=== PATIENT | female | born 1950 | race Caucasian/White ===

== ENCOUNTER 2017-02-11 16:40 | Inpatient (IN) | payer MEDICARE, OTHER ==
[~2017-02-11] VITALS: Ht 160 cm; Wt 87.4 kg
[~2017-02-11 16:40] MED LIST: ADOXA100 PO; AMBIEN 10MG10 MG PO; AMITRIPTYLINE100 MG PO; ASPIRIN E.C. 8181 MG PO; BACTROBAN22 TP; CA; CIPRO 500MG TA500 MG PO; CLINDAMYCIN300 MG PO; CLONIDINE0.1 MG PO; CLOTRIM ANTIFUNGAL1% TP; COZAAR 50MG50 MG/TAB PO; DILAUDID 4MG TAB4 MG PO; DOXYCYCLINE 10100 MG PO; FLAGYL500 MG PO; FLECTOR1.3% TP; FOSAMAX70 MG PO; KLONOPIN0.5 MG PO; LAMICTAL 100MG100 MG PO; LAMICTAL 25MG T25 MG PO; LEVAQUIN 750MG750 M1 PO; LOPRESSOR50 MG PO; LOTRIMIN1% TP; MINOCYCLIN100 MG/CAP PO; MS CONTIN30 MG PO; NORCO 325 MG-7.1 TAB; NORCO 325 MG-7.1 TAB PO; OPANA ER15 MG PO; OXYBUTYNIN5 MG PO; OXYCONTIN 20MG20 MG PO; PERCOCET 325 MG1 TAB PO; PHENERGAN 25 TA25 MG PO; PREMARIN V0.625 MG/G VG; PRILOSEC 20MG20 MG PO; PROVENTIL0.09 MG/A1 IH; QVAR0.04 MG/AC IH; ROBAXIN 75750 MG/TAB PO; ROXICODONE15 MG PO; ST. JOSEPH81 M2 PO; TOPROL XL 25MG25 MG PO; VALIUM5 MG PO; VALTREX500 MG PO
[2017-02-11 17:07] VITALS: BP 163/101; PULSE 54; TEMP 98.2
[2017-02-11 17:24] LABS: BASO % 0.5 % (0.0-2.0); EOS # 0.2 (0.0-0.7); EOS % 2.3 % (0-4.0); GRAN # 3.8 (1.4-6.5); GRAN % 59.3 % (42.2-75.2); LYMPH # 1.7 (1.2-3.4); LYMPH % 26.7 % (20.0-51.0); MEAN CELL VOLUME 96 fl (80.0-100.0); MEAN CORPUSCULAR HGB CONC 33 g/dl (33.0-37.0); MEAN PLATELET VOLUME 10.4 fl (7.4-10.4); MONO # 0.7 (0.1-0.6); MONO % 10.9 % (1.7-9.3); PLATELET COUNT 277 K/mm3 (130-400); RED BLOOD COUNT 3.39 M/mm3 (4.10-5.30); REDCELL DISTRIBUTION WIDTH-CV 12.4 % (11.5-14.5); WHITE BLOOD COUNT 6.4 K/mm3 (4.8-10.8)
[2017-02-11 17:28] LABS: HEMATOCRIT 32.6 % (37.0-47.0); HEMOGLOBIN 10.9 g/dl (12.5-16.0); MEAN CORPUSCULAR HEMOGLOBIN 32 pg (27.0-31.0)
[2017-02-11 17:37] LABS: ADJUSTED CALCIUM 9.3 mg/dL (8.4-10.2); ALBUMIN 3.8 gm/dL (3.5-5.0); BILIRUBIN,TOTAL 0.7 mg/dL (0.0-1.0); C-REACTIVE PROTEIN 3.2 mg/dL (0.0-0.9); CALCIUM 9.1 mg/dL (8.4-10.2); CREATININE, serum 0.85 mg/dL (0.52-1.25); POTASSIUM 4.1 mmol/L (3.4-5.0); TOTAL PROTEIN 7.2 gm/dL (6.4-8.2)
[2017-02-11 17:45] LABS: ERYTHROCYTE SEDIMENTATION RATE 59 mm/hr (0-30)
[2017-02-11] MEDS ORDERED: FLEXERIL 1010 MG/TAB PO (18:08)
[2017-02-11] MEDS ORDERED: DOXYCYCLINE 10100 MG PO (18:08)
[2017-02-11] MEDS ORDERED: KEPPRA 500MG500 MG PO ×2 (18:08)
[2017-02-11] MEDS ORDERED: LAMICTAL200 MG PO (18:10)
[2017-02-11] MEDS ORDERED: COZAAR 50MG50 MG/TAB PO (18:10)
[2017-02-11] MEDS ORDERED: FORTAMET500 M1 PO (18:11)
[2017-02-11] MEDS ORDERED: LOPRESSOR 550 MG/TAB PO (18:11)
[2017-02-11] MEDS ORDERED: KLONOPIN 0.5MG0.5 MG PO (18:12)
[2017-02-11] MEDS ORDERED: PRAVACHOL10 MG PO (18:12)
[2017-02-11] MEDS ORDERED: BINOSTO (18:13)
[2017-02-11] MEDS ORDERED: RESTORIL 77.5 MG/CAP PO (18:13)
[2017-02-11] MEDS ORDERED: LAMICTAL 100MG100 MG PO (18:14)
[2017-02-11] MEDS ORDERED: LUNESTA2 MG PO (18:14)
[2017-02-11] MEDS ORDERED: ZANTAC 150150 MG PO (18:15)
[2017-02-11] MEDS ORDERED: IMODIUM A-D2 MG PO (18:15)
[2017-02-11] MEDS ORDERED: MYRBETR50MG PO (18:16)
[2017-02-11] MEDS ORDERED: AMBIEN 10MG10 MG (18:17)
[2017-02-11] MEDS ORDERED: TAGAMET800 MG (18:17)
[2017-02-11] MEDS ORDERED: SILENOR3 MG PO (18:17)
[2017-02-11] MEDS ORDERED: PRILOTC PO (18:18)
[2017-02-11] MEDS ORDERED: OPANA ER10 MG PO (18:18)
[2017-02-11] MEDS ORDERED: NORCO 325 MG-101 TAB PO (18:19)
[2017-02-11 20:29] VITALS: BP 170/81; PULSE 88; TEMP 98
[2017-02-11 23:37] VITALS: BP 136/56; PULSE 89; TEMP 101
[2017-02-12 03:25] VITALS: BP 144/98; PULSE 80; TEMP 98.2
[2017-02-12 03:32] VITALS: BP 164/84; PULSE 89; TEMP 98.2
[2017-02-12 08:00] LABS: BASO % 0.5 % (0.0-2.0); EOS # 0.2 (0.0-0.7); EOS % 3.1 % (0-4.0); GRAN # 3.3 (1.4-6.5); GRAN % 54.5 % (42.2-75.2); LYMPH # 1.9 (1.2-3.4); LYMPH % 31.3 % (20.0-51.0); MEAN CELL VOLUME 97 fl (80.0-100.0); MEAN CORPUSCULAR HGB CONC 33 g/dl (33.0-37.0); MEAN PLATELET VOLUME 10.6 fl (7.4-10.4); MONO # 0.6 (0.1-0.6); MONO % 10.1 % (1.7-9.3); PLATELET COUNT 263 K/mm3 (130-400); RED BLOOD COUNT 3.16 M/mm3 (4.10-5.30); REDCELL DISTRIBUTION WIDTH-CV 12.4 % (11.5-14.5)
[2017-02-12 08:03] LABS: HEMATOCRIT 30.7 % (37.0-47.0); HEMOGLOBIN 10.2 g/dl (12.5-16.0); MEAN CORPUSCULAR HEMOGLOBIN 32 pg (27.0-31.0)
[2017-02-12 08:20] LABS: C-REACTIVE PROTEIN 3.6 mg/dL (0.0-0.9); CALCIUM 8.7 mg/dL (8.4-10.2); CREATININE, serum 0.83 mg/dL (0.52-1.25); POTASSIUM 3.9 mmol/L (3.4-5.0)
[2017-02-12 08:29] VITALS: BP 165/71; PULSE 88; TEMP 98.4
[2017-02-12 09:08] LABS: ERYTHROCYTE SEDIMENTATION RATE 71 mm/hr (0-30)
[2017-02-12 13:03] VITALS: BP 172/74; PULSE 87; TEMP 97.9
[2017-02-12 15:26] VITALS: BP 154/85; PULSE 97; TEMP 98.8
[2017-02-12 20:13] VITALS: BP 183/79; PULSE 92; TEMP 98.5
[2017-02-13] VITALS (7 sets, daily range): BP systolic 143–185; BP diastolic 69–99; PULSE 71–88; TEMP 97.7–98.6
[2017-02-13 07:18] LABS: BASO % 0.6 % (0.0-2.0); EOS # 0.1 (0.0-0.7); GRAN # 3.7 (1.4-6.5); GRAN % 56.6 % (42.2-75.2); LYMPH # 2.1 (1.2-3.4); LYMPH % 32.8 % (20.0-51.0); MEAN CELL VOLUME 97 fl (80.0-100.0); MEAN CORPUSCULAR HGB CONC 33 g/dl (33.0-37.0); MEAN PLATELET VOLUME 10.3 fl (7.4-10.4); MONO # 0.5 (0.1-0.6); MONO % 7.4 % (1.7-9.3); PLATELET COUNT 313 K/mm3 (130-400); RED BLOOD COUNT 3.35 M/mm3 (4.10-5.30); REDCELL DISTRIBUTION WIDTH-CV 12.4 % (11.5-14.5); WHITE BLOOD COUNT 6.5 K/mm3 (4.8-10.8)
[2017-02-13 07:19] LABS: HEMATOCRIT 32.5 % (37.0-47.0); HEMOGLOBIN 10.8 g/dl (12.5-16.0); MEAN CORPUSCULAR HEMOGLOBIN 32 pg (27.0-31.0)
[2017-02-14] VITALS (7 sets, daily range): BP systolic 158–188; BP diastolic 57–79; PULSE 64–81; TEMP 97.6–98.4
[2017-02-14 08:56] LABS: BASO % 0.7 % (0.0-2.0); EOS # 0.1 (0.0-0.7); GRAN # 2.4 (1.4-6.5); GRAN % 53.8 % (42.2-75.2); LYMPH # 1.7 (1.2-3.4); LYMPH % 36.6 % (20.0-51.0); MEAN CELL VOLUME 98 fl (80.0-100.0); MEAN CORPUSCULAR HGB CONC 33 g/dl (33.0-37.0); MEAN PLATELET VOLUME 9.9 fl (7.4-10.4); MONO # 0.3 (0.1-0.6); PLATELET COUNT 298 K/mm3 (130-400); RED BLOOD COUNT 3.43 M/mm3 (4.10-5.30); REDCELL DISTRIBUTION WIDTH-CV 12.2 % (11.5-14.5); WHITE BLOOD COUNT 4.5 K/mm3 (4.8-10.8)
[2017-02-14 08:59] LABS: HEMATOCRIT 33.5 % (37.0-47.0); HEMOGLOBIN 10.9 g/dl (12.5-16.0); MEAN CORPUSCULAR HEMOGLOBIN 32 pg (27.0-31.0)
[2017-02-14 09:07] LABS: CALCIUM 8.8 mg/dL (8.4-10.2); CREATININE, serum 0.79 mg/dL (0.52-1.25)
[2017-02-14 09:39] LABS: POTASSIUM 3.6 mmol/L (3.4-5.0)
[2017-02-15 03:00] VITALS: BP 170/85; PULSE 74; TEMP 98.5
[2017-02-15 07:02] VITALS: BP 189/85; PULSE 77; TEMP 98.3
[2017-02-15] MEDS ORDERED: LOPRESSOR100 MG PO (11:02)
[2017-02-15] MEDS ORDERED: HYZAAR 12.5 MG-1 TAB PO (11:02)
[2017-02-15 11:04] VITALS: BP 145/57; PULSE 72; TEMP 98.3
[2017-02-15] MEDS ORDERED: DOXYCYCLINE HY100 MG PO (11:35)
[2017-02-15] MEDS ORDERED: APRESOLINE50 MG PO (11:35)
== END 2017-02-15 12:35 | disposition home health service (06) | DRG 638 ==
LOC: MEDICAL 16:40
PROVIDERS: Family Medicine
PROC: 0HDNXZZ Extraction of Left Foot Skin, External Approach (ICD-10-PCS; principal; 2017-02-12)
PROC: 0HDNXZZ Extraction of Left Foot Skin, External Approach (ICD-10-PCS; 2017-02-13)
DX: E11.628 Type 2 diabetes mellitus with other skin complications (principal); L03.116 Cellulitis of left lower limb; L97.429 Non-pressure chronic ulcer of left heel and midfoot with unspecified severity; L03.032 Cellulitis of left toe; E11.621 Type 2 diabetes mellitus with foot ulcer; I10 Essential (primary) hypertension; H54.0 Blindness, both eyes; Z89.422 Acquired absence of other left toe(s); G89.29 Other chronic pain
CPT/HCPCS: 99222-AI; 99232-AI; 99239; J0360; J1650; J2270; J3370; J7030; J7050

== ENCOUNTER → 2017-03-23 | Outpatient (CLI) | payer MEDICARE, OTHER ==
[~2017-03-23] MED LIST changes: +AMBIEN 10MG10 MG; +APRESOLINE50 MG PO; +BINOSTO; +DOXYCYCLINE HY100 MG PO; +FLEXERIL 1010 MG/TAB PO; +FORTAMET500 M1 PO; +HYZAAR 12.5 MG-1 TAB PO; +IMODIUM A-D2 MG PO; +KEPPRA 500MG500 MG PO; +KLONOPIN 0.5MG0.5 MG PO; +LAMICTAL200 MG PO; +LOPRESSOR 550 MG/TAB PO; +LOPRESSOR100 MG PO; +LUNESTA2 MG PO; +MYRBETR50MG PO; +NORCO 325 MG-101 TAB PO; +OPANA ER10 MG PO; +PRAVACHOL10 MG PO; +PRILOTC PO; +RESTORIL 77.5 MG/CAP PO; +SILENOR3 MG PO; +TAGAMET800 MG; +ZANTAC 150150 MG PO
== END ==
LOC: WCC 09:55
DX: E11.621 Type 2 diabetes mellitus with foot ulcer (principal)
CPT/HCPCS: 13919; 16847; 17717; 27516; A6207; A6212; G0463

== ENCOUNTER → 2017-04-01 | Outpatient (CLI) | payer MEDICARE, OTHER | LOC: WCC 03-30 11:16 | DX: E11.621 Type 2 diabetes mellitus with foot ulcer (principal); L97.529 Non-pressure chronic ulcer of other part of left foot with unspecified severity; H54.0 Blindness, both eyes | CPT/HCPCS: 13919; 17040; 17717; 27516; A6207; A6212; Q4106 ==

== ENCOUNTER → 2017-04-08 | Outpatient (CLI) | payer MEDICARE, OTHER | LOC: WCC 08:44 | DX: E11.621 Type 2 diabetes mellitus with foot ulcer (principal); L97.529 Non-pressure chronic ulcer of other part of left foot with unspecified severity | CPT/HCPCS: 13919; 17040; 17717; 27516; A6207; A6212; Q4106 ==

== ENCOUNTER → 2017-04-14 | Outpatient (CLI) | payer MEDICARE, OTHER | LOC: WCC 09:42 | DX: E11.621 Type 2 diabetes mellitus with foot ulcer (principal); L97.509 Non-pressure chronic ulcer of other part of unspecified foot with unspecified severity | CPT/HCPCS: 13919; G0463 ==

== ENCOUNTER → 2017-04-15 | Outpatient (CLI) | payer MEDICARE, OTHER | LOC: WCC 08:51 | DX: E11.621 Type 2 diabetes mellitus with foot ulcer (principal); L97.529 Non-pressure chronic ulcer of other part of left foot with unspecified severity | CPT/HCPCS: 13919; 17040; 17717; 27510; 27516; A6197; A6207; A6212; Q4106 ==

== ENCOUNTER → 2017-04-22 | Outpatient (CLI) | payer MEDICARE, OTHER | LOC: WCC 08:47 | DX: E11.621 Type 2 diabetes mellitus with foot ulcer (principal); L97.529 Non-pressure chronic ulcer of other part of left foot with unspecified severity; E66.01 Morbid (severe) obesity due to excess calories | CPT/HCPCS: 13919; 13973; 16847; 17717; A6199; A6212 ==

== ENCOUNTER → 2017-04-29 | Outpatient (CLI) | payer MEDICARE, OTHER | LOC: WCC 09:19 | DX: Z01.89 Encounter for other specified special examinations (principal) ==

== ENCOUNTER → 2017-05-06 | Outpatient (CLI) | payer MEDICARE, OTHER | LOC: WCC 09:43 | DX: Z01.89 Encounter for other specified special examinations (principal) ==

== ENCOUNTER → 2017-05-13 | Outpatient (CLI) | payer MEDICARE, OTHER | LOC: WCC 05-12 09:29 | DX: E11.621 Type 2 diabetes mellitus with foot ulcer (principal); L97.529 Non-pressure chronic ulcer of other part of left foot with unspecified severity | CPT/HCPCS: 13919; 13973; 18867; 27510; A6197; A6199; A6209; G0463 ==

== ENCOUNTER → 2017-05-20 | Outpatient (CLI) | payer MEDICARE, OTHER | LOC: WCC 09:00 | DX: L97.529 Non-pressure chronic ulcer of other part of left foot with unspecified severity (principal) | CPT/HCPCS: 17716; A6212; G0463 ==

== ENCOUNTER → 2017-07-07 | Outpatient (CLI) | payer MEDICARE, OTHER | LOC: WCC 09:21 | DX: E11.621 Type 2 diabetes mellitus with foot ulcer (principal); L97.519 Non-pressure chronic ulcer of other part of right foot with unspecified severity; L97.529 Non-pressure chronic ulcer of other part of left foot with unspecified severity; E66.01 Morbid (severe) obesity due to excess calories | CPT/HCPCS: 13919; 13973; A6199; G0463 ==

== ENCOUNTER → 2017-07-14 | Outpatient (CLI) | payer MEDICARE, OTHER | LOC: WCC 10:14 | DX: E11.621 Type 2 diabetes mellitus with foot ulcer (principal); L97.519 Non-pressure chronic ulcer of other part of right foot with unspecified severity; L97.529 Non-pressure chronic ulcer of other part of left foot with unspecified severity | CPT/HCPCS: 13919; 27517; A6207 ==

== ENCOUNTER 2017-10-23 16:58 | Inpatient (IN) | payer MEDICARE, OTHER ==
[~2017-10-23] VITALS: Ht 160 cm; Wt 80.7 kg
[2017-10-23] VITALS (307 sets, daily range): BP systolic 81–146; BP diastolic 56–80; PULSE 89–94; TEMP 96.7–97.3; O2SAT 81–100
[~2017-10-23 16:58] MED LIST changes: +FOSAMAX 70MG TA70 MG PO; +GLUMETZA500 MG PO; +LOVENOX 100100 MG/ML SQ; +MS CONTIN 115 MG/TAB PO; +OXY IR5 MG PO; +PERCOCET 325 MG1 TA2 PO; +SEPTRA DS 8001 TAB PO
[2017-10-23 17:30] LABS: BASO % 0.2 % (0.0-2.0); EOS % 0.1 % (0-4.0); GRAN # 10.3 (1.4-6.5); GRAN % 83.9 % (42.2-75.2); LYMPH # 1.3 (1.2-3.4); LYMPH % 10.6 % (20.0-51.0); MEAN CELL VOLUME 106 fl (80.0-100.0); MEAN CORPUSCULAR HGB CONC 30 g/dl (33.0-37.0); MEAN PLATELET VOLUME 10.3 fl (7.4-10.4); MONO # 0.5 (0.1-0.6); PLATELET COUNT 375 K/mm3 (130-400); REDCELL DISTRIBUTION WIDTH-CV 17.8 % (11.5-14.5)
[2017-10-23 17:31] LABS: HEMOGLOBIN 3.5 g/dl (12.5-16.0); MEAN CORPUSCULAR HEMOGLOBIN 32 pg (27.0-31.0)
[2017-10-23 17:32] LABS: HEMATOCRIT 11.6 % (37.0-47.0)
[2017-10-23 17:33] LABS: INR 1.2 (0.8-3.0); PROTHROMBIN TIME 14.4 SECONDS (9.7-12.8)
[2017-10-23 17:33] LABS: ARTERIAL BLD GAS O2 SATURATION 98.5 % (92-100); ARTERIAL BLD GAS TCO2 CT 20.7; ARTERIAL BLOOD GAS BASE EXCESS -4.6 (-2-2); ARTERIAL BLOOD GAS HCO3 19.8 meq/L (22-26); ARTERIAL BLOOD GAS PCO2 31.6 mmHg (35-45); ARTERIAL BLOOD GAS pH 7.41 (7.35-7.45)
[2017-10-23 17:34] LABS: ARTERIAL BLOOD GAS PO2 156.1 mmHg (80-100)
[2017-10-23 17:35] LABS: PARTIAL THROMBOPLASTIN TIME 28.4 SECONDS (26.0-37.0)
[2017-10-23 17:38] LABS: ALANINE AMINOTRANSFERASE 26 U/L (9-52); ALBUMIN 2.9 gm/dL (3.5-5.0); ALKALINE PHOSPHATASE 41 U/L (50-136); ANION GAP 10 mmol/L (7-16); AST,SGOT 19 U/L (15-37); BILIRUBIN,TOTAL 0.4 mg/dL (0.0-1.0); BLOOD UREA NITROGEN 41 mg/dL (7-17); CALCIUM 8.3 mg/dL (8.4-10.2); CARBON DIOXIDE 21 mmol/L (22-30); CHLORIDE 103 mmol/L (98-107); CREATINE KINASE 90 U/L (30-135); CREATININE, serum 1.42 mg/dL (0.52-1.25); GLUCOSE 179 mg/dL (74-106); POTASSIUM 4.4 mmol/L (3.4-5.0); SODIUM 134 mmol/L (137-145); TOTAL PROTEIN 5.6 gm/dL (6.4-8.2)
[2017-10-23 17:51] LABS: TROPONIN-I < 0.012 ng/mL (0.000-0.034)
[2017-10-23 18:17] LABS: COLLECTION METHOD CATHETER
[2017-10-23 18:32] LABS: MUCOUS Present /lpf; PH 6 (5-8); SQUAMOUS EPITHELIAL None Seen /hpf; URINE APPEARANCE Hazy; URINE BACTERIA Rare /hpf; URINE BILIRUBIN Negative (NEGATIVE); URINE BLOOD Negative (NEGATIVE); URINE COLOR Yellow; URINE GLUCOSE Negative (NEGATIVE); URINE KETONE Negative (NEGATIVE); URINE LEUKOCYTE ESTERASE 1+ (NEGATIVE); URINE NITRATE Negative (NEGATIVE); URINE PROTEIN(semi-quant) Negative (NEGATIVE); URINE RBC 0-2 /hpf; URINE UROBILINOGEN Negative (NEGATIVE); URINE WBC 20-50 /hpf
[2017-10-23 18:40] LABS: TRICYCLIC ANTIDEPRESS URINE NEGATIVE
[2017-10-24] VITALS (1368 sets, daily range): BP systolic 117–180; BP diastolic 56–91; PULSE 97–110; TEMP 97.2–99.2; O2SAT 88–100
[2017-10-24 01:10] LABS: HEMATOCRIT 20.9 % (37.0-47.0)
[2017-10-24 01:14] LABS: HEMOGLOBIN 6.9 g/dl (12.5-16.0)
[2017-10-24] MEDS ORDERED: CLEOCIN HCL300 MG PO (03:39)
[2017-10-24 08:38] LABS: BASO # 0.1 (0.0-0.2); BASO % 0.5 % (0.0-2.0); EOS % 0.1 % (0-4.0); GRAN # 9.2 (1.4-6.5); GRAN % 78.6 % (42.2-75.2); LYMPH # 1.6 (1.2-3.4); LYMPH % 13.4 % (20.0-51.0); MEAN CORPUSCULAR HGB CONC 33 g/dl (33.0-37.0); MEAN PLATELET VOLUME 10.1 fl (7.4-10.4); MONO # 0.8 (0.1-0.6); MONO % 6.4 % (1.7-9.3); PLATELET COUNT 332 K/mm3 (130-400); RED BLOOD COUNT 3.02 M/mm3 (4.10-5.30); REDCELL DISTRIBUTION WIDTH-CV 16.1 % (11.5-14.5)
[2017-10-24 08:43] LABS: CALCIUM 8.7 mg/dL (8.4-10.2); CREATININE, serum 0.89 mg/dL (0.52-1.25); HEMATOCRIT 28.2 % (37.0-47.0); HEMOGLOBIN 9.4 g/dl (12.5-16.0); MEAN CELL VOLUME 93 fl (80.0-100.0); MEAN CORPUSCULAR HEMOGLOBIN 31 pg (27.0-31.0); POTASSIUM 4.3 mmol/L (3.4-5.0)
[2017-10-24 20:12] LABS: HEMATOCRIT 27.3 % (37.0-47.0); HEMOGLOBIN 9.2 g/dl (12.5-16.0)
[2017-10-25] VITALS (680 sets, daily range): BP systolic 122–151; BP diastolic 64–72; PULSE 86–99; TEMP 98.2–98.9; O2SAT 87–100
[2017-10-25 05:50] LABS: BASO # 0.1 (0.0-0.2); BASO % 0.6 % (0.0-2.0); EOS # 0.1 (0.0-0.7); EOS % 1.4 % (0-4.0); GRAN # 4.8 (1.4-6.5); GRAN % 61.6 % (42.2-75.2); HEMATOCRIT 26.3 % (37.0-47.0); HEMOGLOBIN 8.7 g/dl (12.5-16.0); LYMPH # 2.2 (1.2-3.4); LYMPH % 27.7 % (20.0-51.0); MEAN CELL VOLUME 96 fl (80.0-100.0); MEAN CORPUSCULAR HEMOGLOBIN 32 pg (27.0-31.0); MEAN CORPUSCULAR HGB CONC 33 g/dl (33.0-37.0); MEAN PLATELET VOLUME 9.7 fl (7.4-10.4); MONO # 0.6 (0.1-0.6); MONO % 8.1 % (1.7-9.3); PLATELET COUNT 309 K/mm3 (130-400); RED BLOOD COUNT 2.75 M/mm3 (4.10-5.30); REDCELL DISTRIBUTION WIDTH-CV 17.2 % (11.5-14.5)
[2017-10-25 06:02] LABS: CALCIUM 8.3 mg/dL (8.4-10.2); CREATININE, serum 0.75 mg/dL (0.52-1.25); POTASSIUM 3.4 mmol/L (3.4-5.0)
[2017-10-25 18:24] LABS: HEMATOCRIT 26.1 % (37.0-47.0); HEMOGLOBIN 8.7 g/dl (12.5-16.0)
[2017-10-26 00:37] VITALS: BP 138/77; PULSE 93; TEMP 97.9
[2017-10-26 04:22] VITALS: BP 131/59; PULSE 88; TEMP 98.1
[2017-10-26 06:37] LABS: CALCIUM 8.2 mg/dL (8.4-10.2); CREATININE, serum 0.71 mg/dL (0.52-1.25); MAGNESIUM 1.8 mg/dL (1.6-2.3)
[2017-10-26 06:39] LABS: MEAN CELL VOLUME 96 fl (80.0-100.0); MEAN CORPUSCULAR HGB CONC 33 g/dl (33.0-37.0); MEAN PLATELET VOLUME 10.1 fl (7.4-10.4); PLATELET COUNT 314 K/mm3 (130-400); RED BLOOD COUNT 2.65 M/mm3 (4.10-5.30); REDCELL DISTRIBUTION WIDTH-CV 17.2 % (11.5-14.5)
[2017-10-26 06:40] LABS: HEMATOCRIT 25.5 % (37.0-47.0); HEMOGLOBIN 8.4 g/dl (12.5-16.0); MEAN CORPUSCULAR HEMOGLOBIN 32 pg (27.0-31.0)
[2017-10-26 06:57] LABS: POTASSIUM 2.9 mmol/L (3.4-5.0)
[2017-10-26 07:36] LABS: BAND 21 % (0-10); EOSINOPHIL 3 % (0-4); LYMPHOCYTE 26 % (20.0-51.0); NEUTROPHILS 48 % (42.0-75.2); PLATELET ESTIMATE NORMAL (NORMAL)
[2017-10-26 07:43] LABS: ANISOCYTOSIS 1+; HYPOCHROMIA 1+
[2017-10-26 16:01] VITALS: BP 148/60; PULSE 86; TEMP 98.3
[2017-10-26 20:24] VITALS: BP 143/86; PULSE 82; TEMP 98.1
[2017-10-27] VITALS (7 sets, daily range): BP systolic 136–159; BP diastolic 55–81; PULSE 80–171; TEMP 97.7–98.5
[2017-10-27 06:39] LABS: BASO % 0.6 % (0.0-2.0); EOS # 0.3 (0.0-0.7); EOS % 6.4 % (0-4.0); GRAN # 2.3 (1.4-6.5); GRAN % 49.3 % (42.2-75.2); LYMPH # 1.6 (1.2-3.4); LYMPH % 34.6 % (20.0-51.0); MEAN CELL VOLUME 98 fl (80.0-100.0); MEAN CORPUSCULAR HGB CONC 32 g/dl (33.0-37.0); MEAN PLATELET VOLUME 9.9 fl (7.4-10.4); MONO # 0.4 (0.1-0.6); MONO % 8.5 % (1.7-9.3); PLATELET COUNT 304 K/mm3 (130-400); RED BLOOD COUNT 2.68 M/mm3 (4.10-5.30); REDCELL DISTRIBUTION WIDTH-CV 17.1 % (11.5-14.5)
[2017-10-27 06:54] LABS: CALCIUM 8.2 mg/dL (8.4-10.2); CREATININE, serum 0.7 mg/dL (0.52-1.25); POTASSIUM 3.6 mmol/L (3.4-5.0)
[2017-10-27 07:02] LABS: HEMATOCRIT 26.3 % (37.0-47.0); HEMOGLOBIN 8.4 g/dl (12.5-16.0); MEAN CORPUSCULAR HEMOGLOBIN 31 pg (27.0-31.0)
[2017-10-28 04:54] VITALS: BP 134/97; PULSE 84; TEMP 97.9
[2017-10-28 07:30] LABS: BASO % 0.5 % (0.0-2.0); EOS # 0.3 (0.0-0.7); EOS % 4.9 % (0-4.0); GRAN # 3.7 (1.4-6.5); GRAN % 66.8 % (42.2-75.2); LYMPH # 1.2 (1.2-3.4); LYMPH % 21.3 % (20.0-51.0); MEAN CELL VOLUME 99 fl (80.0-100.0); MEAN CORPUSCULAR HGB CONC 32 g/dl (33.0-37.0); MEAN PLATELET VOLUME 10.1 fl (7.4-10.4); MONO # 0.3 (0.1-0.6); MONO % 6.1 % (1.7-9.3); PLATELET COUNT 300 K/mm3 (130-400); RED BLOOD COUNT 2.69 M/mm3 (4.10-5.30); REDCELL DISTRIBUTION WIDTH-CV 17.2 % (11.5-14.5)
[2017-10-28 07:32] LABS: HEMATOCRIT 26.6 % (37.0-47.0); HEMOGLOBIN 8.5 g/dl (12.5-16.0); MEAN CORPUSCULAR HEMOGLOBIN 32 pg (27.0-31.0)
[2017-10-28 07:38] LABS: CALCIUM 8.6 mg/dL (8.4-10.2); CREATININE, serum 0.74 mg/dL (0.52-1.25); POTASSIUM 3.3 mmol/L (3.4-5.0)
[2017-10-28 08:05] VITALS: BP 168/81; PULSE 75; TEMP 97.9
[2017-10-28 11:32] VITALS: BP 182/82; PULSE 93; TEMP 98
[2017-10-28 15:40] VITALS: BP 113/94; PULSE 86; TEMP 98
[2017-10-28 19:28] VITALS: BP 145/82; PULSE 105; TEMP 98
[2017-10-29] VITALS (7 sets, daily range): BP systolic 134–174; BP diastolic 65–89; PULSE 91–99; TEMP 98–99.2
[2017-10-29 07:28] LABS: BASO % 0.6 % (0.0-2.0); EOS # 0.3 (0.0-0.7); EOS % 5.3 % (0-4.0); GRAN # 2.2 (1.4-6.5); GRAN % 43.7 % (42.2-75.2); LYMPH # 2.2 (1.2-3.4); LYMPH % 43.1 % (20.0-51.0); MEAN CELL VOLUME 99 fl (80.0-100.0); MEAN CORPUSCULAR HGB CONC 32 g/dl (33.0-37.0); MEAN PLATELET VOLUME 10.2 fl (7.4-10.4); MONO # 0.4 (0.1-0.6); MONO % 7.1 % (1.7-9.3); PLATELET COUNT 335 K/mm3 (130-400); REDCELL DISTRIBUTION WIDTH-CV 17.5 % (11.5-14.5)
[2017-10-29 07:29] LABS: HEMATOCRIT 28.8 % (37.0-47.0); HEMOGLOBIN 9.1 g/dl (12.5-16.0); MEAN CORPUSCULAR HEMOGLOBIN 31 pg (27.0-31.0)
[2017-10-29 07:51] LABS: CALCIUM 9.3 mg/dL (8.4-10.2); CREATININE, serum 0.77 mg/dL (0.52-1.25); MAGNESIUM 1.9 mg/dL (1.6-2.3); POTASSIUM 3.6 mmol/L (3.4-5.0)
[2017-10-30 04:20] VITALS: BP 141/83; PULSE 74; TEMP 98.1
[2017-10-30 07:03] LABS: MEAN CELL VOLUME 100 fl (80.0-100.0); MEAN CORPUSCULAR HGB CONC 32 g/dl (33.0-37.0); MEAN PLATELET VOLUME 9.9 fl (7.4-10.4); PLATELET COUNT 348 K/mm3 (130-400); RED BLOOD COUNT 3.05 M/mm3 (4.10-5.30); REDCELL DISTRIBUTION WIDTH-CV 17.3 % (11.5-14.5)
[2017-10-30 07:13] LABS: HEMATOCRIT 30.4 % (37.0-47.0); HEMOGLOBIN 9.7 g/dl (12.5-16.0); MEAN CORPUSCULAR HEMOGLOBIN 32 pg (27.0-31.0)
[2017-10-30 07:29] LABS: CALCIUM 9.1 mg/dL (8.4-10.2); CREATININE, serum 0.91 mg/dL (0.52-1.25); MAGNESIUM 2.1 mg/dL (1.6-2.3); PHOSPHOROUS 4.5 mg/dL (2.5-4.5); POTASSIUM 4.1 mmol/L (3.4-5.0)
[2017-10-30 07:44] LABS: ANISOCYTOSIS 1+; BAND 12 % (0-10); BASOPHIL 1 % (0-2); EOSINOPHIL 6 % (0-4); LYMPHOCYTE 34 % (20.0-51.0); NEUTROPHILS 43 % (42.0-75.2); PLATELET ESTIMATE NORMAL (NORMAL); POLYCHROMASIA 1+
[2017-10-30 07:45] LABS: TOXIC GRANULATION PRESENT
[2017-10-30 08:30] VITALS: BP 142/71; BP 155/61; PULSE 75; PULSE 86; TEMP 98; TEMP 98.1
[2017-10-30 12:45] VITALS: BP 153/72; PULSE 76; TEMP 97.7
[2017-10-30 16:36] VITALS: BP 115/53; PULSE 89; TEMP 98
[2017-10-30 18:03] LABS: FOLATE (FOLIC ACID) 11.7 ng/mL (7.0-31.4)
[2017-10-30 19:44] VITALS: BP 141/91; PULSE 97; TEMP 98.3
[2017-10-30 23:56] VITALS: BP 142/38; PULSE 71; TEMP 97.9
[2017-10-31] VITALS (13 sets, daily range): BP systolic 103–136; BP diastolic 46–81; PULSE 62–86; TEMP 97.3–98.2
[2017-10-31 07:24] LABS: BASO # 0.1 (0.0-0.2); EOS # 0.3 (0.0-0.7); EOS % 4.5 % (0-4.0); GRAN # 3.5 (1.4-6.5); GRAN % 51.6 % (42.2-75.2); LYMPH # 2.4 (1.2-3.4); LYMPH % 35.3 % (20.0-51.0); MEAN CELL VOLUME 101 fl (80.0-100.0); MEAN CORPUSCULAR HGB CONC 31 g/dl (33.0-37.0); MEAN PLATELET VOLUME 10.1 fl (7.4-10.4); MONO # 0.5 (0.1-0.6); MONO % 7.2 % (1.7-9.3); PLATELET COUNT 366 K/mm3 (130-400); RED BLOOD COUNT 3.09 M/mm3 (4.10-5.30); REDCELL DISTRIBUTION WIDTH-CV 16.8 % (11.5-14.5)
[2017-10-31 07:29] LABS: HEMATOCRIT 31.2 % (37.0-47.0); HEMOGLOBIN 9.8 g/dl (12.5-16.0); MEAN CORPUSCULAR HEMOGLOBIN 32 pg (27.0-31.0)
[2017-10-31 07:43] LABS: CALCIUM 9.1 mg/dL (8.4-10.2); CREATININE, serum 0.85 mg/dL (0.52-1.25); PHOSPHOROUS 4.4 mg/dL (2.5-4.5); POTASSIUM 3.7 mmol/L (3.4-5.0)
[2017-11-01 04:02] VITALS: BP 113/69; PULSE 76; TEMP 98.2
[2017-11-01 06:40] LABS: BASO % 0.4 % (0.0-2.0); EOS # 0.1 (0.0-0.7); EOS % 1.2 % (0-4.0); GRAN # 3.4 (1.4-6.5); GRAN % 49.6 % (42.2-75.2); LYMPH # 2.7 (1.2-3.4); MEAN CELL VOLUME 102 fl (80.0-100.0); MEAN CORPUSCULAR HGB CONC 31 g/dl (33.0-37.0); MEAN PLATELET VOLUME 10.1 fl (7.4-10.4); MONO # 0.6 (0.1-0.6); MONO % 8.5 % (1.7-9.3); PLATELET COUNT 361 K/mm3 (130-400)
[2017-11-01 06:45] LABS: HEMATOCRIT 29.6 % (37.0-47.0); HEMOGLOBIN 9.1 g/dl (12.5-16.0); MEAN CORPUSCULAR HEMOGLOBIN 31 pg (27.0-31.0)
[2017-11-01 06:55] LABS: CALCIUM 8.8 mg/dL (8.4-10.2); CREATININE, serum 1.07 mg/dL (0.52-1.25); POTASSIUM 3.9 mmol/L (3.4-5.0)
[2017-11-01 08:27] VITALS: BP 117/51; PULSE 76; TEMP 98.6
[2017-11-01] MEDS ORDERED: LOPRESSOR 550 MG/TAB PO (09:41)
[2017-11-01] MEDS ORDERED: FERROUS SU325 MG/TAB PO (09:41)
[2017-11-01] MEDS ORDERED: PROTONIX 40MG T40 MG PO (09:43)
[2017-11-01 11:35] VITALS: BP 117/51; PULSE 76; TEMP 98.6
== END 2017-11-01 15:45 | DRG 356 ==
LOC: COL.ER 16:58 → ICU 18:11 → MEDICAL 18:11
PROVIDERS: Emergency Medicine; Family Medicine; Internal Medicine; Nurse Practitioner; Orthopaedic Surgery; Physician Assistant
PROC: 0W3P8ZZ Control Bleeding in Gastrointestinal Tract, Via Natural or Artificial Opening Endoscopic (ICD-10-PCS; 2017-10-24)
PROC: 0DB68ZX Excision of Stomach, Via Natural or Artificial Opening Endoscopic, Diagnostic (ICD-10-PCS; 2017-10-24)
PROC: 0QBN0ZZ Excision of Right Metatarsal, Open Approach (ICD-10-PCS; principal; 2017-10-26 07:30)
PROC: 0JBQ0ZZ Excision of Right Foot Subcutaneous Tissue and Fascia, Open Approach (ICD-10-PCS; 2017-10-31)
DX: K26.4 Chronic or unspecified duodenal ulcer with hemorrhage (principal); R57.8 Other shock; R57.1 Hypovolemic shock; N39.0 Urinary tract infection, site not specified; D62 Acute posthemorrhagic anemia; E87.2 Acidosis; E11.621 Type 2 diabetes mellitus with foot ulcer; I10 Essential (primary) hypertension; H54.8 Legal blindness, as defined in USA; E87.6 Hypokalemia; T87.81 Dehiscence of amputation stump; Z89.411 Acquired absence of right great toe
CPT/HCPCS: 99223-AI; 99231-AI; 99232-AI; 99233-AI; 99239; C9113; J0360; J0610; J0696; J1100; J1170; J1200; J1644; J1815; J2060; J2270; J2405; J2704; J3010; J7030; P9016

== ENCOUNTER → 2017-12-29 | Outpatient (CLI) | payer MEDICARE, OTHER ==
[~2017-12-29] MED LIST changes: +CLEOCIN HCL300 MG PO; +FERROUS SU325 MG/TAB PO; +PROTONIX 40MG T40 MG PO
== END ==
LOC: COL.RAD 08:30
DX: R10.9 Unspecified abdominal pain (principal); Z90.49 Acquired absence of other specified parts of digestive tract; Z90.710 Acquired absence of both cervix and uterus; Z98.890 Other specified postprocedural states

== ENCOUNTER 2020-03-04 15:20 | Inpatient (IN) | payer MEDICARE, OTHER ==
[~2020-03-04] VITALS: Ht 160 cm; Wt 89.3 kg
--- NOTE | 2020-03-04 20:09 | NUR ---
Assessment complete. Lungs clear. Heart sounds normal. Bowels active x4. Pulses present. Bilateral lower extremity edema +1. INT left foot without complications. Reports 9/10 pain in back and right ankle. Valerie DELACRUZN notifed of consult. Patient denies needs and further questions at this time. Orientated to medical floor. Call light in reach.
[2020-03-04] MEDS ORDERED: APRESOLINE50 MG PO (20:41)
[2020-03-04] MEDS ORDERED: NEURONTIN300 MG/CAP PO (20:42)
[2020-03-04] MEDS ORDERED: MS CONTIN 115 MG/TAB PO (20:42)
[2020-03-04] MEDS ORDERED: LOPRESSOR100 MG PO (20:42)
[2020-03-04] MEDS ORDERED: MORPHINE 1515 MG/TAB PO (20:43)
[2020-03-04] MEDS ORDERED: FERROUSAL325 MG PO (20:44)
[2020-03-04] MEDS ORDERED: PROTONIX 40MG T40 MG PO (20:45)
[2020-03-04] MEDS ORDERED: ZANAFLEX CAPSULE4 MG PO (20:46)
[2020-03-04] MEDS ORDERED: MONODOX50 M1 PO (20:47)
[2020-03-04] MEDS ORDERED: POLYMYXIN B/TRIMETH OS (20:48)
[2020-03-04] MEDS ORDERED: DESYREL 50MG50 MG PO (20:50)
[2020-03-04] MEDS ORDERED: ZOLOFT 50MG50 MG PO (20:53)
[2020-03-04] MEDS ORDERED: KEPPRA 500MG500 MG PO (20:56)
[2020-03-04 21:12] VITALS: BP 160/118; PULSE 82; TEMP 97.9
[2020-03-04 22:22] VITALS: BP 174/80
[2020-03-04 22:34] LABS: BASO # 0.1 (0.0-0.2); BASO % 0.6 % (0.0-2.0); EOS # 0.2 (0.0-0.7); EOS % 2.1 % (0-4.0); GRAN # 5.8 (1.4-6.5); GRAN % 69.2 % (42.2-75.2); LYMPH # 1.7 (1.2-3.4); MEAN CELL VOLUME 95 fl (80.0-100.0); MEAN CORPUSCULAR HGB CONC 34 g/dl (33.0-37.0); MEAN PLATELET VOLUME 10.4 fl (7.4-10.4); MONO # 0.6 (0.1-0.6); MONO % 7.2 % (1.7-9.3); PLATELET COUNT 341 K/mm3 (130-400); RED BLOOD COUNT 2.94 M/mm3 (4.10-5.30); REDCELL DISTRIBUTION WIDTH-CV 12.6 % (11.5-14.5)
[2020-03-04 22:42] LABS: HEMATOCRIT 27.9 % (37.0-47.0); HEMOGLOBIN 9.4 g/dl (12.5-16.0); MEAN CORPUSCULAR HEMOGLOBIN 32 pg (27.0-31.0)
[2020-03-04 22:43] LABS: ALBUMIN 3.7 gm/dL (3.5-5.0); CALCIUM 9.1 mg/dL (8.4-10.2); CREATININE, serum 1.03 (0.52-1.25); POTASSIUM 4.4 mmol/L (3.4-5.0); TOTAL PROTEIN 6.8 gm/dL (6.4-8.2)
--- NOTE | 2020-03-04 23:00 | NUR ---
IV started in left upper arm/shoulder by House supervisior TONNY Zaragoza. INT left foot removed at this time.
[2020-03-04 23:11] LABS: COLLECTION METHOD CATHETER
[2020-03-04 23:17] LABS: PH 6 (5-8); SQUAMOUS EPITHELIAL None Seen /hpf; URINE APPEARANCE Clear; URINE BACTERIA None Seen /hpf; URINE BILIRUBIN Negative (NEGATIVE); URINE BLOOD Negative (NEGATIVE); URINE COLOR Yellow; URINE GLUCOSE Negative (NEGATIVE); URINE KETONE Negative (NEGATIVE); URINE LEUKOCYTE ESTERASE Negative (NEGATIVE); URINE NITRATE Negative (NEGATIVE); URINE PROTEIN(semi-quant) Negative (NEGATIVE); URINE RBC 0-2 /hpf; URINE UROBILINOGEN Negative (NEGATIVE)
[2020-03-05] VITALS (7 sets, daily range): BP systolic 113–153; BP diastolic 52–68; PULSE 55–73; TEMP 98–98.9
--- NOTE | 2020-03-05 00:47 | NUR ---
Reporting 7/10 right ankle pain. Provided with PRN dilaudid at this time. Denies other needs. Call light in reach.
[2020-03-05] MEDS ORDERED: ASPIRIN 81M81 MG/TA2 PO (03:36)
[2020-03-05] MEDS ORDERED: HCTZ12.5TAB PO (03:43)
--- NOTE | 2020-03-05 04:19 | NUR ---
Reports back and right ankle pain 910. Provided with PRN dilaudid at this time. Denies other needs.
--- NOTE | 2020-03-05 06:00 | NUR ---
Patient reports 8/10 pain in back and right leg pain. Provided with PRN dilaudid. Denies other needs at this time.
--- NOTE | 2020-03-05 06:25 | NUR ---
Patient required PRN dilaudid for pain control throughout night. Otherwise uneventful night. Resting in bed this Am. Call light in reach.
[2020-03-05 07:01] LABS: BASO # 0.1 (0.0-0.2); BASO % 0.8 % (0.0-2.0); EOS # 0.3 (0.0-0.7); EOS % 3.9 % (0-4.0); GRAN # 4.7 (1.4-6.5); GRAN % 62.6 % (42.2-75.2); LYMPH # 1.8 (1.2-3.4); LYMPH % 23.5 % (20.0-51.0); MEAN CELL VOLUME 96 fl (80.0-100.0); MEAN CORPUSCULAR HGB CONC 33 g/dl (33.0-37.0); MONO # 0.6 (0.1-0.6); MONO % 8.3 % (1.7-9.3); PLATELET COUNT 342 K/mm3 (130-400); RED BLOOD COUNT 2.81 M/mm3 (4.10-5.30); REDCELL DISTRIBUTION WIDTH-CV 12.6 % (11.5-14.5)
[2020-03-05 07:05] LABS: MEAN CORPUSCULAR HEMOGLOBIN 32 pg (27.0-31.0)
--- NOTE | 2020-03-05 07:09 | NUR ---
Report given to TONNY Giles
[2020-03-05 07:13] LABS: CALCIUM 8.9 mg/dL (8.4-10.2); CREATININE, serum 0.96 (0.52-1.25)
--- NOTE | 2020-03-05 10:12 | NUR ---
Patient to MRI with Yue. I spoke with this am regaurding consult & plans for vertebroplasty later in the week. Patient transferred well to Mri cart. did rounded prior to MRI. Plan of care reviewed. Dr. Luong rounded this am. Stressed importance of Ice & elevation. Patient reports her pain a 10/10. Home medications given. Splint intact to wrist, cms intact. Right ankle splint intact. Cms intact. Patient main complaint is of her back pain. She is blind, but seems to do well. Will await her return
--- NOTE | 2020-03-05 14:15 | NUR ---
SW met with the patient to discuss discharge plan. The patient lives in [place] with her , Nanette (ph#[phone]). They are both legally blind. She reports independence with ADLs and has a cane, walker, and wheelchair. She receives private duty services for four hours a week from [facility] for shopping, cooking, and medication set up. She states that she also receives transportation services from [facility] out of [place]. The patient's PCP is Dr. Dasha Clarke and she receives her medications from [facility] and [facility]. She reports no difficulties obtaining her meds. The patient does not have advanced directives and she was not interested in completing them at this time. The patient plans to return home with her upon discharge. The patient is to have surgery tomorrow. SW to continue to follow.
--- NOTE | 2020-03-05 16:37 | NUR ---
Patient continues to have persistant complaints of back pain. See Emar for medications given. Patient and her family have questions regaurding Vertebroplasty. notified & he is going to call her spouse. Patient provided with Kpad for pain relief. Patient also repostioned as needed. Continue to ice & elevated to RLE. IVF Left upper arm per orders. Nixon & scds to LLE
[2020-03-05 17:13] LABS: CLOSTRIDIUM DIFF A/B NEG; CLOSTRIDIUM DIFF A/B INTERP No C.diff present
--- NOTE | 2020-03-05 19:25 | NUR ---
Patient repositioned in bed & provided with incontinece care. loose stool. Cdif was negative. SHe was fed dinner. tolerated well. Continue to Ice & elevate RLE. Back pain continue to be main complaint. Report to night nurse.
[2020-03-06] VITALS (8 sets, daily range): BP systolic 123–172; BP diastolic 44–72; PULSE 59–67; TEMP 97.9–99.4
--- NOTE | 2020-03-06 03:02 | NUR ---
Patient has rested well throughout the night. Frequently asks questions about upcoming procedures and all questions are answered. Patient has been NPO since midnight. IV to left shoulder infusing with no difficulties. Patient repositioned q2 hours. Patient c/o pain frequently and PRN pain medication administered as ordered. Martin draining clear yellow urine. Aaron wrap covering right ankle. Minimal swelling noted. Splint and aaron wrap present to left ankle. Will continue to monitor patient.
[2020-03-06 06:13] LABS: BASO % 0.5 % (0.0-2.0); EOS # 0.3 (0.0-0.7); EOS % 3.9 % (0-4.0); GRAN # 4.9 (1.4-6.5); GRAN % 60.7 % (42.2-75.2); LYMPH # 2.2 (1.2-3.4); LYMPH % 26.5 % (20.0-51.0); MEAN CELL VOLUME 96 fl (80.0-100.0); MEAN CORPUSCULAR HGB CONC 34 g/dl (33.0-37.0); MEAN PLATELET VOLUME 10.5 fl (7.4-10.4); MONO # 0.6 (0.1-0.6); MONO % 7.7 % (1.7-9.3); PLATELET COUNT 392 K/mm3 (130-400); RED BLOOD COUNT 2.79 M/mm3 (4.10-5.30); REDCELL DISTRIBUTION WIDTH-CV 12.6 % (11.5-14.5)
[2020-03-06 06:14] LABS: HEMATOCRIT 26.9 % (37.0-47.0); HEMOGLOBIN 9.1 g/dl (12.5-16.0); MEAN CORPUSCULAR HEMOGLOBIN 33 pg (27.0-31.0)
[2020-03-06 06:20] LABS: CALCIUM 8.8 mg/dL (8.4-10.2); CREATININE, serum 0.86 (0.52-1.25); POTASSIUM 4.2 mmol/L (3.4-5.0)
--- NOTE | 2020-03-06 10:20 | NUR ---
Assessment completed, alert/oriented, vital signs stable, reports severe ankle and back pain, giving pain meds as ordered, right ankle splint in place/ no signs of impaired circulation/ cap refill <3 seconds, denies any numbness/tingling, heart RRR, lungs CTA, got PICC plaed to CHRISTIAN, INT remvoed from [facility], patient NPO, signed consnet for ORIF of right ankle today, densies other needs at this time
--- NOTE | 2020-03-06 16:47 | NUR ---
Patient had negative MRSA nare swab, per infection control nurse/ we can leave off contact p/c for now but still need a 2nd negative screeen to clear MRSA off her profile
--- NOTE | 2020-03-06 17:46 | NUR ---
patient arrived back to Surgical floor from PACU at 1725, she is drowsy but arousable, vital signs stable, pain is controlled, will continue to monitor
--- NOTE | 2020-03-06 18:47 | NUR ---
Patient continues to do well post-op, vital signs stable, pain controlled
--- NOTE | 2020-03-06 21:36 | NUR ---
Dr. Harris notified about results from previous Covid screen from [facility] and this nurse asked if they still wanted the swab completed. Dr. Harris stated to address this with the day shift team. Will address this with the day shift nurse at shift change.
[2020-03-07] VITALS (7 sets, daily range): BP systolic 94–207; BP diastolic 30–90; PULSE 57–71; TEMP 97.6–98.9
--- NOTE | 2020-03-07 04:20 | NUR ---
Patient has rested well throughout the night. PICC line to CHRISTIAN infusing IVF and antibiotics as ordered. Cast with isidro wrap noted to right lower leg. Dressing clean, dry, and intact. Patient able to pick leg up and move it on the bed. Splint and isidro wrap noted to left wrist. Patient complains of pain 8/10 when pain is assesssed. PRN Diluadid given as needed. Patient has been NPO since midnight for procedure this morning. Martin catheter present and draining clear, yellow urine. Repositioning assisted by staff members. Will continue to monitor patient.
[2020-03-07 07:42] LABS: MEAN CELL VOLUME 99 fl (80.0-100.0); MEAN CORPUSCULAR HGB CONC 32 g/dl (33.0-37.0); MEAN PLATELET VOLUME 10.6 fl (7.4-10.4); PLATELET COUNT 297 K/mm3 (130-400); RED BLOOD COUNT 2.25 M/mm3 (4.10-5.30); REDCELL DISTRIBUTION WIDTH-CV 12.5 % (11.5-14.5)
[2020-03-07 07:56] LABS: CALCIUM 6.3 mg/dL (8.4-10.2); CREATININE, serum 0.75 (0.52-1.25); HEMATOCRIT 22.3 % (37.0-47.0); HEMOGLOBIN 7.1 g/dl (12.5-16.0); MEAN CORPUSCULAR HEMOGLOBIN 32 pg (27.0-31.0); POTASSIUM 3.3 mmol/L (3.4-5.0)
[2020-03-07 08:46] LABS: BAND 9 % (0-10); LYMPHOCYTE 23 % (20.0-51.0); METAMYELOCYTE 2 % (0-0); NEUTROPHILS 63 % (42.0-75.2); PLATELET ESTIMATE NORMAL (NORMAL)
--- NOTE | 2020-03-07 09:45 | NUR ---
Pt transferred back to Sugical unit post-vertebroplasty. Pt connected to VS's monitors. Pt A&Ox3 and answers questions appropriately. Bedside handoff to TONNY Watts. This RN updating regarding morning lab glucose level of 69, D5 1/2NS infused during procedure per Dr Sosa. deicer repairer to recheck glucose. This RN also notifying surgical scrub tech of elevated BP during procedure. Pt to receive scheduled antihypertensives this AM. No s/sx of distress noted at this time.
--- NOTE | 2020-03-07 10:22 | NUR ---
Patient to vertebroplasty with Eric in technology lab teacher. COnsent obtained.
--- NOTE | 2020-03-07 11:27 | NUR ---
SW met with the patient to review discharge plan and to discuss post-acute rehab. The patient reports that she would be agreeable to rehab. SW reviewed Medicare.gov's list of nursing homes in the [place] area. 1) The patient chose 1) [facility] 2) [facility] 2) [facility] 4) [facility] [place]. ALANNA contacted and faxed a referral to all four facilities. SW awaiting their screens.
--- NOTE | 2020-03-07 13:03 | NUR ---
Martin catheter removed with no complications at this time.
[2020-03-07 15:34] LABS: HEMATOCRIT 25.8 % (37.0-47.0); HEMOGLOBIN 8.6 g/dl (12.5-16.0)
--- NOTE | 2020-03-07 15:50 | NUR ---
Coty, at [facility], reports that they are considering the patient; but that they would require another COVID test. A COVID test had been done with the patient was at [facility]. Simi, at [facility], reports that they are able to accept the patient tomorrow, if the patient does decide to go there. She states that a doc-to-doc call would just need to be done. The physician at [facility] would be Dr. Daniels (ph#[phone]). Jazzy, at [facility], reports that they are able to accept the patient tomorrow. ALANNA met with the patient and the patient's , Nanette (ph#[phone]), to update. The patient and her report that they are unsure if they would have transport to [facility] and are not sure if they would want to private pay for an ambulace. The patient and her report that they would like some time to think about their options, before making a decision on facility. ALANNA to continue to follow.
--- NOTE | 2020-03-07 21:20 | NUR ---
Pt. laying in bed at this time. Pt. is A&OX3, assessment complete. PICC to rt. upper arm patent. Dressint to rt. foot CDI. CMS wnl. Pt. reports pain at a 7 on pain scale, gave scheduled pain medication. Pt. voiced that she was afraid she did not have enough pain medication. Informed pt. that this nurse can call the provider and see what their recommondation is. Pt. voices understanding. Hospitalist manager utilization management notified. Discussed situation with her. No new orders. Called [facility] Grier, also no new orders. Will continue to monitor.
[2020-03-08] VITALS (7 sets, daily range): BP systolic 95–153; BP diastolic 40–67; PULSE 55–100; TEMP 98–99.7
--- NOTE | 2020-03-08 08:19 | NUR ---
Lying in bed. Patient says that her pain does not seem to let up and would like pain medication when she can. Explained that I would review her meds and see what can be given. Splint to left wrist in place. Dressing to right lower foot CDIJuan Manuel Connor CNA, will assist patient in eating breakfast.
--- NOTE | 2020-03-08 08:25 | NUR ---
Contacted Dr. Gordon and explain that the patient BP is 118/40 and that she is to receive multiple BP medications. Dr. Gordon explains that it is okay for patient to get all her BP meds.
--- NOTE | 2020-03-08 09:49 | NUR ---
Patient resting in bed with eyes closed. No signs or symptoms of discomfort noted.
[2020-03-08 10:59] LABS: BASO % 0.5 % (0.0-2.0); EOS # 0.3 (0.0-0.7); EOS % 3.2 % (0-4.0); GRAN # 5.3 (1.4-6.5); LYMPH # 1.5 (1.2-3.4); MEAN CELL VOLUME 99 fl (80.0-100.0); MEAN CORPUSCULAR HGB CONC 33 g/dl (33.0-37.0); MEAN PLATELET VOLUME 10.5 fl (7.4-10.4); MONO # 0.8 (0.1-0.6); MONO % 10.3 % (1.7-9.3); PLATELET COUNT 375 K/mm3 (130-400); RED BLOOD COUNT 2.59 M/mm3 (4.10-5.30); REDCELL DISTRIBUTION WIDTH-CV 12.9 % (11.5-14.5)
[2020-03-08 11:01] LABS: CALCIUM 8.6 mg/dL (8.4-10.2); CREATININE, serum 0.83 (0.52-1.25); POTASSIUM 3.9 mmol/L (3.4-5.0)
[2020-03-08 11:02] LABS: HEMATOCRIT 25.5 % (37.0-47.0); HEMOGLOBIN 8.3 g/dl (12.5-16.0); MEAN CORPUSCULAR HEMOGLOBIN 32 pg (27.0-31.0)
--- NOTE | 2020-03-08 12:15 | NUR ---
Requests pain medication for pain in right ankle. Administered Morphine PO as prescribed. Patient denies further needs.
--- NOTE | 2020-03-08 15:44 | NUR ---
Lying in bed with eyes open. Rates pain 8/10 in right ankle. Offered IV pain medication and the patient declines at this time. Patient denies further needs at this time.
--- NOTE | 2020-03-08 16:45 | NUR ---
ALANNA received a call from patients provider who indicated that the patient was medically cleared to go home. Provider asked if SW could speak to her about her inability to decide where she wishes to go. SW indicated that there are places that has accepted her, and that there is no medical reason for her to stay. patient continues to be indescisive.SW discussed options and indicated and informed patient that SW will be by tomorrow for a solid decision.
--- NOTE | 2020-03-08 17:43 | NUR ---
Rating pain 9/10 and requests pain medication. Administered Morphine as prescribed. Patient does not want to eat dinner at this time. Is on phone talking with family. Denies additional needs.
--- NOTE | 2020-03-08 20:08 | NUR ---
Pt. sitting up in bed at this time. Pt. is A&OX3, assessment complete. PICC to rt. upper arm patent. Pt. continues to question doctors choices on pain management. Reenforced 's wishes. Pt. voices understanding. Pt. continues to rate pain at a 10, yet pt. is not crying or writhing in pain and is able to carry on a conversation. Pt. denies further needs, call light within reach.
[2020-03-09 05:25] VITALS: BP 142/57; PULSE 60; TEMP 98
[2020-03-09 07:53] VITALS: BP 155/67; PULSE 66; TEMP 98.8
--- NOTE | 2020-03-09 08:19 | NUR ---
Lying in bed with eyes open. Rates pain in right ankle 9/10, describes as sharp. Will administer pain med as scheduled. Dressing to right ankle CDI. Patient denies further needs.
[2020-03-09 08:33] LABS: MEAN CELL VOLUME 98 fl (80.0-100.0); MEAN CORPUSCULAR HGB CONC 33 g/dl (33.0-37.0); MEAN PLATELET VOLUME 10.3 fl (7.4-10.4); PLATELET COUNT 355 K/mm3 (130-400); RED BLOOD COUNT 2.76 M/mm3 (4.10-5.30)
[2020-03-09 08:34] LABS: HEMATOCRIT 26.9 % (37.0-47.0); HEMOGLOBIN 8.8 g/dl (12.5-16.0); MEAN CORPUSCULAR HEMOGLOBIN 32 pg (27.0-31.0)
[2020-03-09 08:48] LABS: CALCIUM 8.8 mg/dL (8.4-10.2); CREATININE, serum 0.77 (0.52-1.25); POTASSIUM 3.9 mmol/L (3.4-5.0)
[2020-03-09 10:41] LABS: BAND 4 % (0-10); LYMPHOCYTE 21 % (20.0-51.0); NEUTROPHILS 69 % (42.0-75.2); PLATELET ESTIMATE NORMAL (NORMAL)
[2020-03-09 11:56] VITALS: BP 118/58; PULSE 60; TEMP 98.5
--- NOTE | 2020-03-09 12:06 | NUR ---
Rating pain 8/10 in right ankle. Morphine administered as prescribed. Patient eating lunch at this time. Denies further needs.
[2020-03-09 12:40] VITALS: BP 118/58; PULSE 60; TEMP 98.5
--- NOTE | 2020-03-09 13:01 | NUR ---
Report called to Geeta Hardin.
[2020-03-09 14:07] VITALS: BP 146/60; PULSE 64
--- NOTE | 2020-03-09 14:22 | NUR ---
[facility] here to parts picker patient. Patient transferred into wheelchair with assist of one and use of walker. Patient has all personal belongings. Discharge packet provided to [facility] staff.
--- NOTE | 2020-03-09 16:22 | NUR ---
[facility] discharge at 01:30 p.m. Faxed DC orders.
== END 2020-03-09 14:16 | DRG 493 ==
LOC: SURG 15:20
PROVIDERS: Hospitalist; Nurse Practitioner Family; Physician Assistant; ADMIT Orthopaedic Surgery
PROC: 02HV33Z Insertion of Infusion Device into Superior Vena Cava, Percutaneous Approach (ICD-10-PCS; 2020-03-06)
PROC: 0QSJ04Z Reposition Right Fibula with Internal Fixation Device, Open Approach (ICD-10-PCS; principal; 2020-03-06 13:30)
PROC: 0QU03JZ Supplement Lumbar Vertebra with Synthetic Substitute, Percutaneous Approach (ICD-10-PCS; 2020-03-07)
DX: S82.841A Displaced bimalleolar fracture of right lower leg, initial encounter for closed fracture (principal); S32.039A Unspecified fracture of third lumbar vertebra, initial encounter for closed fracture; H54.40 Blindness, one eye, unspecified eye; I10 Essential (primary) hypertension; E78.5 Hyperlipidemia, unspecified; E11.9 Type 2 diabetes mellitus without complications; K21.9 Gastro-esophageal reflux disease without esophagitis; M81.0 Age-related osteoporosis without current pathological fracture; G40.909 Epilepsy, unspecified, not intractable, without status epilepticus; G47.00 Insomnia, unspecified; F32.9 Major depressive disorder, single episode, unspecified; D64.9 Anemia, unspecified; G89.4 Chronic pain syndrome; S63.502A Unspecified sprain of left wrist, initial encounter; W10.9XXA Fall (on) (from) unspecified stairs and steps, initial encounter; S70.02XA Contusion of left hip, initial encounter; S70.01XA Contusion of right hip, initial encounter; Z20.828 Contact with and (suspected) exposure to other viral communicable diseases; Z90.89 Acquired absence of other organs; Z90.49 Acquired absence of other specified parts of digestive tract; Z90.710 Acquired absence of both cervix and uterus; Z79.84 Long term (current) use of oral hypoglycemic drugs; Z87.11 Personal history of peptic ulcer disease
CPT/HCPCS: 99223; 99231-AI; 99232-AI; 99233-AI; 99239; C1713; C1751; J0360; J1100; J1170; J1200; J1815; J1885; J2250; J2405; J2704; J3010; J3370; J7030; J7050; J7120

== ENCOUNTER → 2020-09-12 | Outpatient (CLI) | payer MEDICARE, OTHER ==
[~2020-09-12] MED LIST changes: +ASPIRIN 81M81 MG/TA2 PO; +DESYREL 50MG50 MG PO; +FERROUSAL325 MG PO; +HCTZ12.5TAB PO; +MONODOX50 M1 PO; +MORPHINE 1515 MG/TAB PO; +NEURONTIN300 MG/CAP PO; +POLYMYXIN B/TRIMETH OS; +ZANAFLEX CAPSULE4 MG PO; +ZOLOFT 50MG50 MG PO
== END ==
LOC: COL.LAB 21:09
DX: E13.621 Other specified diabetes mellitus with foot ulcer (principal); L97.509 Non-pressure chronic ulcer of other part of unspecified foot with unspecified severity

== ENCOUNTER 2020-09-17 08:38 | Inpatient (IN) | payer MEDICARE, OTHER ==
[~2020-09-17] VITALS: Ht 160 cm; Wt 89.0 kg
[2020-10-30] VITALS (9 sets, daily range): BP systolic 147–184; BP diastolic 50–86; PULSE 55–65; TEMP 97.5–98.6
[2020-10-30] MEDS ORDERED: COLACE 100100 MG/CAP PO (12:22)
[2020-10-30] MEDS ORDERED: MAG-OX 400400 MG/TAB PO (12:22)
[2020-10-30] MEDS ORDERED: FOLIC ACID 11 MG/TA1 PO (12:23)
[2020-10-30] MEDS ORDERED: LIORESAL 1010 MG/TAB PO (12:24)
[2020-10-30] MEDS ORDERED: ROBITUSSIN DM 105 ML PO (12:25)
[2020-10-30] MEDS ORDERED: ANTI-DIARRHEAL2 MG PO (12:25)
[2020-10-30] MEDS ORDERED: MIRALAX PA17 GM/Dose PO (12:26)
[2020-10-30] MEDS ORDERED: PERCOCET 325 MG1 TAB PO (12:27)
--- NOTE | 2020-10-30 15:25 | NUR ---
PATIENT ADMITED INTO ROOM 343 POST OP. ORIENTED BUT DROWSY. NOTED ELEVATED B/P IN THE 170'S WITH ALL OTHER VSS. PACU REPORTS ANESTHESIA IS AWARE AND THEY DID NOT TREAT. PATIENT REPORTS SHE DID TAKE HER B/P PILLS THIS AM PER ANESTHESIA. LEFT BKA DRESSING IS CD&I WITH ACEWRAP, TECHNOL AND ICE PACK INPLACE. HX OF MRSA, ON CONTACT. HEAD TO TOE ASSESSMENT COMPLETE. PATIENT IS BLIND AND SO IS HER WHO IS AT BEDSIDE. ORIENTED TO ROOM AND CALL LIGHT IN REACH.
--- NOTE | 2020-10-30 16:04 | NUR ---
Stock Counter faxed referrals to [facility], [facility], [facility], [facility], and to [facility].
--- NOTE | 2020-10-30 20:15 | NUR ---
PT TAKES HS MEDS WITHOUT PROBLEM. HAS RT BKA IN SPLINT, DRSG D/I. HAS IVF TO LEFT FOREARM WITHOUT REDNESS OR SWELLING. VOIDING PER BEDPAN. IS ALERT AND ORIENTED.
[2020-10-31] VITALS (8 sets, daily range): BP systolic 138–185; BP diastolic 49–84; PULSE 57–68; TEMP 97.6–98.9
--- NOTE | 2020-10-31 00:22 | NUR ---
MEDICATED WITH NORCO 7.5MG 2 TABS PO AT THIS TIME. RATES PAIN 9/10.
--- NOTE | 2020-10-31 04:15 | NUR ---
PT REPORTS PAIN 10/10, MEDICATED WITH NORCO 7.5MG 2 TABS AND OXYCODONE 5MG PO AT THIS TIME.
[2020-10-31] MEDS ORDERED: NORCO 325 MG-7.1 TAB PO (06:27)
[2020-10-31] MEDS ORDERED: ROXICODONE 55 MG/TAB PO (06:28)
[2020-10-31 07:03] LABS: HEMATOCRIT 30.4 % (37.0-47.0); HEMOGLOBIN 9.5 g/dl (12.5-16.0)
--- NOTE | 2020-10-31 07:38 | NUR ---
Patient tolerating PO fluids without difficulty. Contacted CHASE Price with Ortho, and orders received to dc IV fluids.
--- NOTE | 2020-10-31 07:54 | NUR ---
Lying in bed awake. Alert and oriented x4. Rates pain 8/10 to back, left BKA, and right foot. Explain that she was provided pain medication prior to this nurse coming on shift and I would bring her scheduled MS Contin. Dressing to left BKA CDI with immobilizer intact. IV fluids dc'd at this time. Patient assisted onto bedpan at this time. Ask patient if she has ordered breakfast, patient says no. Assist patient in getting on phone with dietary to order all meals for the day at this time.
--- NOTE | 2020-10-31 10:27 | NUR ---
Patient lying back in recliner with eyes closed. Respirations even and unlabored. No signs or symptoms of discomfort noted at this time.
--- NOTE | 2020-10-31 10:53 | NUR ---
Patient rates pain 8/10, administer pain medication as prescribed. Patient assisted up to BSC, voids, pericare provided, assisted into bed. Patient required assist of two with transfers, gait was unsteady. Assisted into comfortable position. BP elevated, explain that we will let the pain medication work and recheck her BP. Patient denies additional needs at this time.
--- NOTE | 2020-10-31 12:00 | NUR ---
MISHA Park, in room to assist patient with bed bath. BP rechecked and has decreased. Patient pain still there but a little better.
--- NOTE | 2020-10-31 13:09 | NUR ---
Patient lying in bed awake. Patient says that her spouse would like to come up to visit her and he is blind. Patient says that the person who drives them where they need to go works until 1999 and asks if it would be okay if they pick him up at 2030. Spoke with Naz and she says that it would be fine if the spouse came up and if they were picked up at 2030. Patient informed.
--- NOTE | 2020-10-31 13:45 | NUR ---
Lying in bed resting. Responds when name called out. Assist patient in setting up lunch tray. Patient says that her spouse is not coming up today, he will come tomorrow. Denies additional needs at this time.
--- NOTE | 2020-10-31 13:52 | NUR ---
SW faxed updates to DAMARIS, Wilfred Jung, Raul, and Michael Roberts.
--- NOTE | 2020-10-31 14:19 | NUR ---
Patient assisted onto bedpan. Voids, pericare provided. Assisted to comfortable position in bed. Patient sposue here, patient surprised but happy that he is here. Denies additional needs.
--- NOTE | 2020-10-31 14:56 | NUR ---
Jazzy, at [facility], reports that they have declined the patient.
--- NOTE | 2020-10-31 15:21 | NUR ---
Patient assisted up to BSC with OT and this nurse. Patient uses walker. Needed verbal cues to stay in walker and bring walker with her to the commode. Patient able to void and perform own pericare. Patient assisted back into bed into comfortable position. Patient denies additional needs at this time. Spouse in room with the patient.
--- NOTE | 2020-10-31 15:36 | NUR ---
Pain 8/10 in back and left BKA. Patient would like pain medication, adminsiter as prescribed. Patient resting in bed with spouse at bedside. Denies additional needs.
--- NOTE | 2020-10-31 15:50 | NUR ---
ALANNA met with the patient and her , Anum (ph#[phone]), to discuss discharge plan. The patient lives in [place] with her . The patient and her are both legally blind. She reports independence with ADLs and has a walker and wheelchair. She receives home health services from [facility]. ALANNA contacted and faxed updates to Daniella at [facility]. The patient's PCP is Dr. Dasha Clarke and she receives her medications from [facility]. She reports no difficulties obtaining her meds. The patient states that she and her receive transportation services through [facility] out of [place] and from a private duty woman. The patient does not have a DPOA-HC and she was not interested in completing a DPOA-HC at this time. The patient had a BKA yesterday. Referrals had been sent to [facility], [facility], [facility] [place], [facility], and [facility]. [facility] declined. The earliest IPR can take is Tuesday, if they were to accept the patient. ALANNA updated the patient and [place] on this. The patient states that she would really prefer [facility]. She does not want to go to [facility]. The patient was open to sending a referral to [facility] as a last resort. ALANNA contacted and faxed a referral to [facility]. Awaiting screen. A COVID test was ordered.
--- NOTE | 2020-10-31 18:10 | NUR ---
Lying in bed visiting with spouse. Patient does not want food at this time and requests tray not be brought in and kept in fridge for later. Patient denies additional needs at this time.
--- NOTE | 2020-10-31 20:26 | NUR ---
PT IN BED. REPORTS PAIN TO LEFT LEG /. MEDICATED WITH HS MEDS INCLUDING OXYCODONE 5MG PO. USES BEDPAN, ROLLS WELL. HAS SL TO LEFT FOREARM. IS ALERT AND ORIENTED X4. DRSG TO LEFT STUMP D/I, IMMOBILIZER ON.
[2020-11-01] VITALS (8 sets, daily range): BP systolic 154–198; BP diastolic 49–110; PULSE 54–62; TEMP 98.6–99.3
--- NOTE | 2020-11-01 00:35 | NUR ---
PT ASKING FOR PAIN MEDS, PAIN 8/10 TO LEFT LEG. NORCO 7.5MG 2 TABS PO GIVEN AT THIS TIME.
--- NOTE | 2020-11-01 04:46 | NUR ---
PT ASKING FOR PAIN MEDS. B/P RECHECKED WITH LARGER CUFF, 177/67 ON LEFT ARM. MEDICATED WITH NORCO 7.5MG 2 TABS PO AT THIS TIME.
--- NOTE | 2020-11-01 09:10 | NUR ---
AM SHIFT ASSESSMENT COMPLETED. MORNING MEDICATIONS ADMINISTERED. PATIENT SITTING UP IN BEDSIDE CHAIR THIS MORNING. PATIENT WAS ASSISTED TO THE COMMODE AND THEN TO THE CHAIR WITH TWO MEMBERS OF NURSING STAFF, PATIENT TOLERATED WELL. COVID SWAB COLLECTED. WILL CONTINUE TO MONITOR.
--- NOTE | 2020-11-01 18:19 | NUR ---
PATIENT HAD AN UNEVENTFUL SHIFT. PRIMARY COMPLAINT THROUGHOUT THE DAY WAS PAIN IN THE LEFT STUMP. PRN MEDICATION AND SCHEDULED MEDICATIONS GIVEN DIRECTED. PATIENT CURRENTLY RESTING IN BED WITH LLE ELEVATED ON PILLOW, WITH BRACE IN PLACE, AND ICE PACK TO END OF STUMP. CALL LIGHT WITHIN REACH. WILL REPORT OFF TO ONCOMING NURSE.
--- NOTE | 2020-11-01 22:20 | NUR ---
GIVEN HS MEDS INCLUDING NORCO 7.5MG FOR PAIN 8/10 TO LEFT STUMP. IS ALERT AND ORIENTED X3. SL TO LEFT FOREARM FLUSHES WELL. HAS DRSG/IMMOBILIZER TO LEFT STUMP, D/I.
[2020-11-02] VITALS (7 sets, daily range): BP systolic 111–175; BP diastolic 50–70; PULSE 55–62; TEMP 98.3–98.8
--- NOTE | 2020-11-02 01:25 | NUR ---
Reports left stump pain. Medicated with Oxycodone 5mg po at this time.
--- NOTE | 2020-11-02 02:30 | NUR ---
Pt reporting pain 8/10 to left stump, medicated with [place] 7.5mg 2 tabs at this time.
--- NOTE | 2020-11-02 09:45 | NUR ---
PATIENT ASSESSMENT COMPLETED. PATIENT IS UP IN THE CHAIR EATING BREAKFAST SHE IS HAVING ALOT OF PAIN RATING IT A 9/10 TO THE LEFT LEG. LEFT LOWER LEG IS WRAPPED AND IN BRACE.
--- NOTE | 2020-11-02 10:57 | NUR ---
PATIENT IS SLEEPING IN THE CHAIR NO SIGNS OF DISTRESS NOTED
--- NOTE | 2020-11-02 13:41 | NUR ---
PATIENT TRANSFERED TO COMMODE FROM CHAIR THEN TO BED. SHE IS SLIGHTLY OFF BALANCE WHEN UP WITH THE WALKER. SHE IS ABLE TO WIGGLE AND HOP OVER TO TRANSFER. SHE DOES WELL.
--- NOTE | 2020-11-02 16:13 | NUR ---
[facility] agency called and stated they will review updates on Tuesday and decide on acceptance. SW will continue to follow.
[2020-11-03 03:45] VITALS: BP 137/49; PULSE 53; TEMP 97.8
[2020-11-03 08:00] VITALS: BP 104/49; PULSE 52; TEMP 97.4
--- NOTE | 2020-11-03 09:43 | NUR ---
PT SLEEPING IN BED AT BEDSIDE SHIFT REPORT. PT ASSISTED UP TO COMMODE WITH WALKER, GAIT BELT, BOOT, AND TWO ASSIST AND THEN TO RECLINER THIS AM. PT REPORTED 9/10 PAIN AND RECIEVED PRN NORCO AND SCHEDULED MS CONTIN.
[2020-11-03 12:00] VITALS: BP 85/66; PULSE 56; TEMP 98.5
--- NOTE | 2020-11-03 14:55 | NUR ---
The patient is to discharge today, 11/03 to [facility] for post acute rehab. The team and the patient were agreeable. [facility] accepted but the patient declined those facilities. The patient will be transported at 1600. ALANNA faxed discharge orders. SW contacted the patient's , he was agreeable. There are no additional needs.
--- NOTE | 2020-11-03 16:09 | NUR ---
PT RECEIVED ONE MORE DOSE OF NORCO AFTER THIS AM AND A DOSE OF DEJON PRIOR TO DISCHARGING TO [facility]. PT ASSISTED TO COMMODE, IV DISCONTINUED TO LUE AND BAG PACKED BY CRAPS MANAGER. REPORT CALLED TO NURSE AT [facility]ILLED FACILITY. PT AWAITING RIDE TO [facility].
--- NOTE | 2020-11-03 20:13 | NUR ---
[facility] NEEDED [facility] FOR NARCOTICS. [facility] PA DID NOT DO THIS UPON DISCHARGE PAPERWORK. [facility] NOTIFIED THIS NURSE THEY WERE NEEDED AROUND 1800. SCRIPTS WERE FINALLY OBTAINED AROUND 191 AND FAXED TO [facility].
== END 2020-11-03 16:50 | DRG 618 ==
LOC: SURG 10-08 07:30 → INPTSU 10-30 10:52 → SURG 10-30 12:30
PROVIDERS: Physician Assistant; ADMIT Orthopaedic Surgery
PROC: 0Y6J0Z1 Detachment at Left Lower Leg, High, Open Approach (ICD-10-PCS; principal; 2020-10-30 12:30)
DX: E11.621 Type 2 diabetes mellitus with foot ulcer (principal); I10 Essential (primary) hypertension; K21.9 Gastro-esophageal reflux disease without esophagitis; G89.29 Other chronic pain; M54.9 Dorsalgia, unspecified; G40.909 Epilepsy, unspecified, not intractable, without status epilepticus; E78.5 Hyperlipidemia, unspecified; E11.9 Type 2 diabetes mellitus without complications; D50.0 Iron deficiency anemia secondary to blood loss (chronic); Z20.828 Contact with and (suspected) exposure to other viral communicable diseases
CPT/HCPCS: A9284; J0690; J1170; J2405; J2704; J3010; J7030; L1830

== ENCOUNTER → 2020-12-19 | Outpatient (CLI) | payer MEDICARE, OTHER ==
[~2020-12-19] MED LIST changes: +ANTI-DIARRHEAL2 MG PO; +COLACE 100100 MG/CAP PO; +FOLIC ACID 11 MG/TA1 PO; +LIORESAL 1010 MG/TAB PO; +MAG-OX 400400 MG/TAB PO; +MIRALAX PA17 GM/Dose PO; +ROBITUSSIN DM 105 ML PO; +ROXICODONE 55 MG/TAB PO
== END ==
LOC: ZCOL.LAB 06:08
DX: T81.89XA Other complications of procedures, not elsewhere classified, initial encounter (principal)

== ENCOUNTER → 2021-01-20 | Outpatient (REF) ==
[2021-01-20 15:48] LABS: COLLECTION METHOD CLEAN CATCH
[2021-01-20 16:03] LABS: MUCOUS Present /lpf; PH 5 (5-8); SQUAMOUS EPITHELIAL 0-2 /hpf; URINE APPEARANCE Clear; URINE BACTERIA None Seen /hpf; URINE BILIRUBIN Negative (NEGATIVE); URINE BLOOD Negative (NEGATIVE); URINE COLOR Yellow; URINE GLUCOSE Negative (NEGATIVE); URINE KETONE Negative (NEGATIVE); URINE LEUKOCYTE ESTERASE Negative (NEGATIVE); URINE NITRATE Negative (NEGATIVE); URINE PROTEIN(semi-quant) Negative (NEGATIVE); URINE RBC 0-2 /hpf; URINE UROBILINOGEN Negative (NEGATIVE); URINE WBC 0-2 /hpf
== END ==
LOC: ZLAB.STJ 15:46
PROVIDERS: Internal Medicine
DX: N39.0 Urinary tract infection, site not specified (principal)

== ENCOUNTER → 2021-02-09 | Outpatient (CLI) | payer MEDICARE, OTHER | LOC: ZLAB.STJ 11:18 | DX: E11.59 Type 2 diabetes mellitus with other circulatory complications (principal) ==